=== PATIENT | female | born 1995 | race Two or more races ===

== ENCOUNTER → 2023-03-26 | Outpatient (CLI) | payer OTHER ==
[2023-03-26 18:02] LABS: HEMATOCRIT 38.5 % (36.0-47.0); HEMOGLOBIN 13.4 g/dl (12.0-15.5); MEAN CORPUSCULAR HEMOGLOBIN 31.1 pg (27.0-33.0); MEAN CORPUSCULAR HGB CONC 34.8 g/dl (32.0-36.5); MEAN CORPUSCULAR VOLUME 89.3 fl (80.0-96.0); PLATELET COUNT, AUTOMATED 303 10^3/uL (150-450); RED BLOOD COUNT 4.31 10^6/uL (4.00-5.40); WHITE BLOOD COUNT 5.9 10^3/uL (4.0-10.0)
[2023-03-26 18:25] LABS: BLOOD UREA NITROGEN 11 MG/DL (9-23); CALCIUM LEVEL 9.1 MG/DL (8.5-10.1); CARBON DIOXIDE LEVEL 29 MMOL/L (20-31); CHLORIDE LEVEL 105 MMOL/L (98-107); GLOMERULAR FILTRATION RATE > 60.0 (>60); GLUCOSE, FASTING 79 MG/DL (60-100); SODIUM LEVEL 139 MMOL/L (136-145)
[2023-03-26 18:28] LABS: FREE T4 1.04 NG/DL (0.89-1.76); THYROID PEROXIDASE ANTIBODY < 28.0 U/ML (<60.0); THYROID STIMULATING HORMONE 0.928 uIU/ML (0.55-4.78)
[2023-03-26 18:58] LABS: HIV 1&2 SCREEN NEGATIVE (NEGATIVE)
== END ==
LOC: M PLALAB 16:03
PROVIDERS: ATTEND Family Medicine
DX: N91.4 Secondary oligomenorrhea (principal); Z11.9 Encounter for screening for infectious and parasitic diseases, unspecified
CPT/HCPCS: 36415; 80048; 84439; 84443; 85027; 86376; 86803; 87389; G0463

== ENCOUNTER → 2023-08-18 | Outpatient (CLI) | payer OTHER, SELFPAY | LOC: M WHC 09:01 | PROVIDERS: ATTEND Family Medicine | DX: Z36.9 Encounter for antenatal screening, unspecified (principal); Z3A.12 12 weeks gestation of pregnancy ==

== ENCOUNTER → 2023-09-17 | Outpatient (CLI) | payer OTHER | LOC: M WHC 08:58 | PROVIDERS: ATTEND Family Medicine | DX: Z36.89 Encounter for other specified antenatal screening (principal); Z3A.20 20 weeks gestation of pregnancy ==

== ENCOUNTER → 2023-10-07 | Outpatient (CLI) | payer OTHER ==
[2023-10-07 19:04] LABS: HEMATOCRIT 29.6 % (36.0-47.0); HEMOGLOBIN 10.2 g/dl (12.0-15.5); MEAN CORPUSCULAR HEMOGLOBIN 31.5 pg (27.0-33.0); MEAN CORPUSCULAR HGB CONC 34.5 g/dl (32.0-36.5); MEAN CORPUSCULAR VOLUME 91.4 fl (80.0-96.0); PLATELET COUNT, AUTOMATED 264 10^3/uL (150-450); RED BLOOD COUNT 3.24 10^6/uL (4.00-5.40); WHITE BLOOD COUNT 5.7 10^3/uL (4.0-10.0)
[2023-10-07 19:24] LABS: GLUCOSE CHALLENGE TEST 1 HOUR 105 MG/DL (LESS THAN 140)
[2023-10-07 19:53] LABS: HIV 1&2 SCREEN NEGATIVE (NEGATIVE)
[2023-10-07 20:01] LABS: HEPATITIS C VIRUS ABY INDEX 0.02 INDEX (<0.8)
[2023-10-07 20:43] LABS: CHLAMYDIA DNA AMPLIFICATION NEGATIVE (NEGATIVE); GC DNA AMPLIFICATION NEGATIVE (NEGATIVE)
== END ==
LOC: M PLALAB 11:02
PROVIDERS: ATTEND Obstetrics & Gynecology
DX: Z34.02 Encounter for supervision of normal first pregnancy, second trimester (principal)

== ENCOUNTER → 2023-12-04 | Outpatient (CLI) | payer OTHER | LOC: M WHC 10:02 | PROVIDERS: ATTEND Specialist | DX: Z34.03 Encounter for supervision of normal first pregnancy, third trimester (principal); Z3A.35 35 weeks gestation of pregnancy ==

== ENCOUNTER → 2023-12-11 | Outpatient (REF) | payer OTHER | LOC: M PLALAB 11:40 | PROVIDERS: ATTEND Obstetrics & Gynecology | DX: Z36.89 Encounter for other specified antenatal screening (principal); Z3A.36 36 weeks gestation of pregnancy ==

== ENCOUNTER 2024-01-06 09:59 | Outpatient (CLI) | payer OTHER ==
[~2024-01-06] VITALS: Ht 157.5 cm; Wt 67.3 kg
[2024-01-06 10:20] VITALS: BP 129/94
[2024-01-06] MEDS ORDERED: PRENTAB9 PO (10:30)
[2024-01-06 11:02] VITALS: BP 126/79
== END 2024-01-06 14:55 | disposition home or self-care (01) ==
LOC: M LDO 09:59
PROVIDERS: ATTEND Obstetrics & Gynecology
DX: O47.1 False labor at or after 37 completed weeks of gestation (principal); Z3A.40 40 weeks gestation of pregnancy
CPT/HCPCS: 59025; G0463

== ENCOUNTER 2024-01-07 21:27 | Inpatient (IN) | payer OTHER ==
[~2024-01-07] VITALS: Ht 157.5 cm; Wt 67.3 kg
[~2024-01-07 21:27] MED LIST: PRENTAB9 PO
[2024-01-07 21:39] VITALS: BP 151/97
[2024-01-07 22:42] LABS: HEMATOCRIT 36.7 % (36.0-47.0); HEMOGLOBIN 12.6 g/dl (12.0-15.5); MEAN CORPUSCULAR HEMOGLOBIN 28.1 pg (27.0-33.0); MEAN CORPUSCULAR HGB CONC 34.3 g/dl (32.0-36.5); MEAN CORPUSCULAR VOLUME 81.9 fl (80.0-96.0); PLATELET COUNT, AUTOMATED 336 10^3/uL (150-450); RED BLOOD COUNT 4.48 10^6/uL (4.00-5.40); WHITE BLOOD COUNT 12.4 10^3/uL (4.0-10.0)
[2024-01-07] MEDS: PROMETHAZINE 25MG/ML 1ML VIAL IV ONE (22:52)
[2024-01-07] MEDS: BUTORPHANOL 2 MG/ML 1ML VIAL IV ONE (22:52)
[2024-01-07] MEDS ORDERED: CARBOPROST TROMETHAMINE 250 MCG/ML AMP IM PRN (23:05)
[2024-01-07] MEDS ORDERED: LIDOCAINE 1% MDV 20ML VIAL INFIL PRN (23:05)
[2024-01-07] MEDS ORDERED: OXYTOCIN DRIP 30 UNITS in IV 1 EA IV PRN (23:05)
[2024-01-07] MEDS ORDERED: TRANEXAMIC ACID INJection 1,000 MG in NS 100 ML IV PRN (23:05)
[2024-01-07] MEDS ORDERED: OXYTOCIN INJ 10UNITS/ML 1ML VIAL IM PRN (23:05)
[2024-01-07 23:32] LABS: URIC ACID 3.9 MG/DL (3.1-7.8)
[2024-01-07 23:34] LABS: LDH LACTATE DEHYDROGENASE 248 U/L (120-246)
[2024-01-07 23:35] LABS: ALT/SGPT 13 U/L (7.0-40); AST/SGOT 16 U/L (<34); BILIRUBIN,TOTAL 0.8 MG/DL (0.3-1.2); CREATININE FOR GFR 0.55 MG/DL (0.55-1.30); GLOMERULAR FILTRATION RATE > 60.0 (>60)
[2024-01-08] MEDS ORDERED: EPIDURAL/PCA KEYS XX PRN (00:15)
[2024-01-08] MEDS ORDERED: ePHEDrine SULFATE 25 MG/5 ML(5MG/ML) SYRINGE IVP PRN (00:15)
[2024-01-08] MEDS ORDERED: diphenhydrAMINE 50MG/ML VIAL IV PRN (00:15)
[2024-01-08] MEDS: FENTANYL/ROPIVACAINE/NACL BAG 100 ML EPIDURAL SCH (00:15)
[2024-01-08] MEDS ORDERED: NALOXONE INJ 0.4MG/1ML VIAL IV PRN (00:15)
[2024-01-08] MEDS ORDERED: ONDANSETRON 4MG 2ML VIAL IV PRN (00:15)
[2024-01-08] MEDS ORDERED: LR 500 ML IV PRN (00:15)
[2024-01-08] MEDS ORDERED: OXYTOCIN DRIP 30 UNITS in IV 1 EA IV SCH (00:20)
[2024-01-08] MEDS: LR 1,000 ML IV SCH (00:20)
[2024-01-08] MEDS ORDERED: LIDOCAINE 1% MDV 20ML VIAL As Ordered ONE (02:07)
[2024-01-08] MEDS ORDERED: IBUPROFEN 800 MG TAB PO PRN (03:20)
[2024-01-08] MEDS ORDERED: DOCUSATE SODIUM 100MG CAPSULE PO PRN (03:20)
[2024-01-08] MEDS ORDERED: MOM 30ML SUSPENSION UDC PO PRN (03:20)
[2024-01-08] MEDS ORDERED: ANUSOL HC CREAM 30GM TOP PRN (03:20)
[2024-01-08] MEDS ORDERED: RHOGAM 300MCG (1500IU) INJ IM SCH (03:20)
[2024-01-08] MEDS ORDERED: MEASLES,MUMPS,RUBELLA VACCINE INJ (MMR-II) SQ SCH (03:20)
[2024-01-08 03:33] LABS: CORD GAS ABE V -3.3; CORD GAS HCO3 V 23.3 MMOL/L; CORD GAS PCO2 V 47.9 mmHg; CORD GAS PH V 7.304 UNITS; CORD GAS PO2 V 27.5 mmHg; CORD GAS SBC V 21.1 MMOL/L; CORD GAS TCO2 V 24.7 MMOL/L
[2024-01-08 03:45] VITALS: BP 148/88; O2SAT 99
[2024-01-08 06:00] VITALS: BP 130/77; O2SAT 99
[2024-01-08 18:00] VITALS: BP 135/84; O2SAT 100
[2024-01-08] MEDS: ACETAMINOPHEN 500 MG TAB PO PRN (21:06)
[2024-01-09 06:00] VITALS: BP 139/82; O2SAT 97
== END 2024-01-09 14:51 | disposition home or self-care (01) | DRG 807 ==
LOC: M LDO 21:27 → M LDI 22:09 → M OBS 01-08 03:45
PROVIDERS: ADMIT Advanced Practice Midwife; ATTEND Advanced Practice Midwife
PROC: 0HQ9XZZ Repair Perineum Skin, External Approach (ICD-10-PCS; principal; 2024-01-08)
PROC: 10E0XZZ Delivery of Products of Conception, External Approach (ICD-10-PCS; principal; 2024-01-08)
DX: O48.0 Post-term pregnancy (principal); Z37.0 Single live birth; Z3A.40 40 weeks gestation of pregnancy; O69.81X0 Labor and delivery complicated by cord around neck, without compression, not applicable or unspecified; O70.0 First degree perineal laceration during delivery